=== PATIENT | female | born 1955 | race Caucasian/White ===

== ENCOUNTER 2019-08-16 15:28 | Outpatient (CLI) | payer BC, MEDICARE, SELFPAY ==
--- NOTE | 2019-08-16 15:39 | XR_ITS ---
WS: [id number] DEXA (DUAL ENERGY X-RAY ABSORPTIOMETRY) Bone mineral density was performed using a Kudan machine. HISTORY: OSTEOPENIA, ASYMPTOMATIC POST MENOPAUSAL STATUS COMPARISON: None available. Lumbar spine BMD (L1-L4): 0.966 g/cm2 T score: -1.8 Z score: -1.4 Total hip BMD: Left: 0.835 g/cm2. T score: -1.4 Z score: -1.0 Right: 0.808 g/cm2. T score: -1.6 Z score: -1.2 10 year probability of a major osteoporotic fracture is 26%. XR/XR DEXA axial skeleton* [id number] IMPRESSION: OSTEOPENIA based upon the WHO classification for females. Patient at significan t risk for fracture.
== END 2019-08-16 15:29 | disposition home or self-care (01) ==
PROVIDERS: Family Provider Family Medicine; PCP Family Medicine; Visit Provider Family Medicine
DX: M85.80 Other specified disorders of bone density and structure, unspecified site (principal); Z78.0 Asymptomatic menopausal state
CPT/HCPCS: 77080

== ENCOUNTER → 2020-01-11 13:01 | Outpatient (BNVA) | payer BC, SELFPAY | PROVIDERS: Family Provider Family Medicine; PCP Family Medicine; Visit Provider Orthopaedic Surgery | DX: M17.0 Bilateral primary osteoarthritis of knee (principal) | CPT/HCPCS: 73560; 73565 ==

== ENCOUNTER 2020-07-19 12:55 | Outpatient (CLI) | payer BC, SELFPAY ==
--- NOTE | 2020-07-19 13:05 | MM_ITS ---
WS: [id number] SCREENING DIGITAL MAMMOGRAM WITH CAD HISTORY: SCREENING COMPARISON: 07/13/2019, 06/04/2018 Bilateral CC and MLO views submitted. Computer aided detection analyzed. Breast composition: The breasts are almost entirely fatty. No suspicious masses, microcalcifications or architectural distortion. Benign lymph nodes in each breast. MM/[place] [id number] IMPRESSION: BI-RADS: 2-Benign FOLLOW UP: 1 Year Follow-up
== END 2020-07-19 12:56 | disposition home or self-care (01) ==
LOC: RADSHAW 12:59
PROVIDERS: PCP Internal Medicine; Visit Provider Internal Medicine
DX: Z12.31 Encounter for screening mammogram for malignant neoplasm of breast (principal)
CPT/HCPCS: 77067

== ENCOUNTER 2021-09-19 10:08 | Outpatient (CLI) | payer BC, SELFPAY ==
--- NOTE | 2021-09-19 10:21 | MM_ITS ---
WS: [id number] BILATERAL DIGITAL SCREENING MAMMOGRAPHY WITH CAD CLINICAL INFORMATION: SCREENING HISTORY: Screening mammogram. No current complaints. COMPARISON: July 19, 2020 TECHNIQUE: Bilateral CC and MLO views. FINDINGS: Scattered fibroglandular densities bilaterally. Lucent centered calcification RIGHT breast. Stable in tramammary lymph node upper outer LEFT breast. No suspicious focal mass, asymmetry, calcifications, o r architectural distortion. No evidence of malignancy. MM/[place] [id number] IMPRESSION: BI-RADS: 2-Benign FOLLOW UP: 1 Year Follow-up Recommend return to annual screening mammography.
== END 2021-09-19 10:09 | disposition home or self-care (01) ==
PROVIDERS: PCP Internal Medicine; Visit Provider Internal Medicine
DX: Z12.31 Encounter for screening mammogram for malignant neoplasm of breast (principal)
CPT/HCPCS: 77067

== ENCOUNTER 2022-09-23 11:41 | Outpatient (CLI) | payer BC, SELFPAY ==
--- NOTE | 2022-09-23 11:59 | MM_ITS ---
WS: [id number] BILATERAL SCREENING DIGITAL TOMOSYNTHESIS MAMMOGRAM WITH CAD HISTORY: SCREENING COMPARISON: 09/19/2021, 07/19/2020 and 05/14/2017 Bilateral CC and MLO views with tomosynthesis and synthetic mammography submitted. Computer aided det ection analyzed. Breast composition: There are scattered areas of fibroglandular density. No suspicious masses, microc alcifications or architectural distortion. Tubular asymmetry in the central anterior LEFT breast is s table over multiple prior years. Benign calcification RIGHT breast. MM/[place] [id number] IMPRESSION: BI-RADS: 2-Benign FOLLOW UP: 1 Year Follow-up
== END 2022-09-23 11:42 | disposition home or self-care (01) ==
PROVIDERS: PCP Internal Medicine; Visit Provider Internal Medicine
DX: Z12.31 Encounter for screening mammogram for malignant neoplasm of breast (principal)
CPT/HCPCS: 77063; 77067

== ENCOUNTER → 2022-12-18 13:48 | Outpatient (BNVA) | payer BC, SELFPAY | PROVIDERS: PCP Internal Medicine; Visit Provider Nurse Practitioner Family | DX: M17.0 Bilateral primary osteoarthritis of knee (principal); Z71.89 Other specified counseling; E66.9 Obesity, unspecified; Z68.41 Body mass index [BMI] 40.0-44.9, adult | CPT/HCPCS: 73560; 73565 ==

== ENCOUNTER 2022-12-19 16:38 | Emergency (ER) | payer BC, SELFPAY ==
[2022-12-19 16:55] VITALS: BP 175/91; PULSE 78; RESP 17; TEMP 36.6; O2SAT 93
--- NOTE | 2022-12-19 17:11 | XRR_ITS ---
PROCEDURE INFORMATION: Exam: XR Left Knee Exam date and time: 12/19/2022 4:28 PM Age: 67 years old Clinical indication: Pain; Knee; Left; Prior surgery; Surgery date: 6+ months; Surgery type: Scope; Additional info: Fall and knee pain TECHNIQUE: Imaging protocol: Radiologic exam of the left knee. Views: 3 views. COMPARISON: No relevant prior studies available. FINDINGS: Bones/joints: Severe tricompartmental osteoarthritis of the knee. Chronic proximal fibular diaphyseal healed fracture. Soft tissues: Normal. XR/XR knee LT 3V* [id number] IMPRESSION: 1. Negative for acute fracture or dislocation. 2. Severe tricompartmental osteoarthritis of the knee. 3. Chronic proximal fibular diaphyseal healed fracture.
--- NOTE | 2022-12-19 17:11 | XRR_ITS ---
PROCEDURE INFORMATION: Exam: XR Right Knee Exam date and time: 12/19/2022 4:33 PM Age: 67 years old Clinical indication: Pain; Knee; Right; Additional info: Fall and knee pain TECHNIQUE: Imaging protocol: Radiologic exam of the right knee. Views: 3 views. COMPARISON: No relevant prior studies available. FINDINGS: Bones/joints: Moderate to severe tricompartmental osteoarthritis of the knee, greatest medially. Soft tissues: Normal. XR/XR knee RT 3V* [id number] IMPRESSION: Moderate to severe tricompartmental osteoarthritis of the knee, greatest medially.
--- NOTE | 2022-12-19 17:11 | XRR_ITS ---
PROCEDURE INFORMATION: Exam: XR Left Hip Exam date and time: 12/19/2022 4:24 PM Age: 67 years old Clinical indication: Hip pain; Left hip; Additional info: Fall and hip pain TECHNIQUE: Imaging protocol: Radiologic exam of the left hip. Views: 2 or 3 views hip with pelvis when performed. COMPARISON: No relevant prior studies available. FINDINGS: Bones/joints: Unremarkable. No acute fracture. Soft tissues: Unremarkable. XR/XR hip LT 2-3V wo/w pel* [id number] IMPRESSION: No acute findings. If concern for fracture remains clinically consider further evaluation with a CT scan given overlapping soft tissue density somewhat limiting evaluation.
--- NOTE | 2022-12-19 18:20 | CTR_ITS ---
PROCEDURE INFORMATION: Exam: CT Left Lower Extremity Without Contrast, Hip Exam date and time: 12/19/2022 6:57 PM Age: 67 years old Clinical indication: Pain; Hip; Left; Additional info: Hip pain and difficulty bearing weight after fall TECHNIQUE: Imaging protocol: CT of the left lower extremity without contrast was performed. Exam focused on the hip. Radiation optimization: All CT scans at this facility use at least one of these dose optimization techniques: automated exposure control; mA and/or kV adjustment per patient size (includes targeted exams where dose is matched to clinical indication); or iterative reconstruction. REPORTING DATA: Count of CT and Cardiac NM exams in prior 12 months: This patient has received 0 known CTs and 0 known cardiac nuclear medicine studies in the 12 months prior to the current study. COMPARISON: CR (PELVIS, ) 12/19/2022 4:24 PM RADIATION DOSE METRICS: Total DLP (mGy-cm): 847 FINDINGS: Bones/joints: Normal. No acute fracture or dislocation. Soft tissues: Normal. Bowel: Diverticulosis of the distal colon. Reproductive: The uterus and ovaries are absent. CT/CT hip LT wo con* [id number] IMPRESSION: No acute findings.
[2022-12-19 18:28] VITALS: RESP 18
[2022-12-19] MEDS: morphine 4 mg/mL SDV 1 mL IM (18:28)
[2022-12-19] MEDS: ondansetron 4 MG Tablet PO ×2 (18:29→20:11)
--- NOTE | 2022-12-19 19:22 | ED_ITS ---
HPI - Fall General: Chief Complaint: Fall Stated Complaint: left leg pain Time Seen by Provider: 12/19/22 17:02 History of Present Illness: Patient is in today after a fall. She reports that she tripped over a curb and fell onto both of her knees and her hands (all fours) and then she fell over onto her left hip on the pavement. She denies hitting her head. She denies loss of consciousness. She denies that she is on any blood thinning medications. She reports difficulty with bearing weight on her left leg. She does have some pain in her knees and also feels like she skinned up her elbows. She reports that she has ongoing knee issues and she just received steroid injections in both knees yesterday Associated symptoms-after fall: Denies abdominal pain, chest pain, headache(s) or lightheadedness Review of Systems Const: Denies: fever(s), chills or body aches Card: Denies: chest pain, palpitations, irregular heart rhythm, ligh theadedness or syncope Resp: Denies: dyspnea, productive cough or non-productive cough GI: Denies: abdominal pain, nausea or vomiting Musc: Reports: extremity pain and limited range of motion Neuro: Denies: headache(s), numbness in extremities or weakness in extremities PFSH ED PFSH: Social History Smoking and tobacco status: former smoker Alcohol intake: never Substance/Drug Use: never Physical Exam Const: COMMON NORMALS: no acute distress, patient oriented x3 and alert GENERAL APPEARANCE: cooperative ORIENTATION/CONSCIOUSNESS: Yes awake, Yes oriented to person, Yes oriented to place and Yes oriented to time Neck/C-Spine: COMMON NORMALS: full ROM Resp: COMMON NORMALS: normal respiratory effort, No retractions, No use of accessory muscles and clear to auscultation bilaterally EFFORT & INSPECTION: Yes symmetric chest movement AUSCULTATION: clear to auscultation bilaterally Cardio: COMMON NORMALS: regular rate, regular rhythm, S1 normal heart sound present and S2 normal heart sound present RATE: regular rate RHYTHM: regular rhythm HEART SOUNDS: S1 normal heart sound present and S2 normal heart sound present GI: COMMON NORMALS: Normal to inspection, nondistended, normoactive bowel sounds present, Soft to palpation, non-tender, No hepatosplenomegaly present, no masses and no bruits INSPECTION: Yes normal to inspection PALPATION: Yes Soft to palpation and Yes No hepatosplenomegaly present : COMMON NORMALS: Yes no CVA tenderness BLADDER/KIDNEY EXAM: Yes no CVA tenderness Back/Pelvis: COMMON NORMALS: no CVA tenderness Extremity: NARRATIVE EXTREMITY EXAM: Patient has tenderness to palpation left posterior hip. Patient is not bearing weight on the left leg. Pedal pulses intact bilateral feet. Patient has some tenderness to palpation bilateral anterior knees however she is able to bend and extend at the knees. Patient has superficial abrasions bilateral elbows but has full range of motion of the arms. Neuro: COMMON NORMALS: patient oriented x3 SENSORIUM/ORIENTATION: Yes alert, Yes oriented to person, Yes oriented to place and Yes oriented to time Psych: COMMON NORMALS: cooperative Course ED course: Patient had an episode of central chest pain that radiated to her back while waiting for her CT to results. She reported that she was a little bit short of breath for a minute but felt like it was because it hurts to breathe not necessarily that she could not breathe. She did not have any diaphoresis. She does not have any heart history per her. She states that she thinks it is just muscle spasming from her fall. Pain resolved within 5 to 10 minutes. EKG did not show any acute ST elevation. Patient does not wish to have further cardiac work-up at this time because she states she knows it is from the fall and just muscle spasming. Patient wishes to be discharged to home at this time and states that she will return for any additional chest pain. Vital Signs: Vital signs: Vital Signs Temperature 97.9 F 12/19/22 16:55 Pulse Rate 78 12/19/22 16:55 Respiratory Rate 18 12/19/22 18:28 Blood Pressure 175/91 12/19/22 16:55 Pulse Oximetry 93 12/19/22 16:55 Oxygen Delivery Me thod Room Air 12/19/22 16:55 MDM - Fall Medical Decision Making Consider fracture hip versus contusion x-ray hip view was limited due to overlying soft tissue/body habitus. Given the fact that the patient is having difficulty bearing weight on the leg at all CT scan without contrast is done. CT scan shows no acute findings. X-ray knees show chronic tricompartmental osteoarthritis in the left knee has a noted chronic healed fibular fracture. Patient is given 1 dose of pain medication in the ER today. We will discharge patient home with hydrocodone 5 mg 325 mg 1 p.o. every 4-6 hours as needed pain #[address] Miner. Follow-up with primary care provider. Return to the ER as needed for any new or worsening symptoms or return of chest pain. Lab Data Radiology Impressions Hip/Pelvis X-Ray 12/19/22 17:11 IMPRESSION: No acute findings. If concern for fracture remains clinically consider further evaluation with a CT scan given overlapping soft tissue density somewhat limiting evaluation. Knee X-Ray 12/19/22 17:11 IMPRESSION: Moderate to severe tricompartmental osteoarthritis of the knee, greatest medially. Hip CT 12/19/22 18:20 IMPRESSION: No acute findings. Discharge Plan Discharge Patient Disposition: Home Clinical Impression: Contusion of left hip and thigh, Osteoarthritis of knees, bilateral, Contusion of left knee, Contusion of knee, right Condition: Stable Prescriptions: No Action betamethasone acet,sod phos [Celestone Soluspan] 6 mg/mL suspension 6 mg INTRA-BARBARA ONCE Qty: 1 0RF bupivacaine (PF) 0.5 % (5 mg/mL) solution 5 mg INTRA-BARBARA ONCE Qty: 2 0RF lidocaine (PF) 10 mg/mL (1 %) solution 10 mg INTRA-BARBARA ONCE Qty: 2 0RF omeprazole 20 mg capsule,delayed release(DR/EC) 20 mg PO DAILY fluticasone propion-salmeterol [Advair Diskus] 250-50 mcg/dose blister with device 1 inh INHALATION BID Premarin 0.625 mg tablet 0.625 mg PO DAILY betamethasone acet,sod phos [Celestone Soluspan] 6 mg/mL suspension 6 mg intra-articular ONCE Qty: 1 0RF bupivacaine (PF) 0.5 % (5 mg/mL) solution 5 mg intra-articular ONCE Qty: 2 0RF lidocaine (PF) 10 mg/mL (1 %) solution 10 mg intra-articular ONCE Qty: 2 0RF betamethasone acet,sod phos [Celestone Soluspan] 6 mg/mL suspension 6 mg INTRA-BARBARA ONCE Qty: 1 0RF bupivacaine (PF) 0.5 % (5 mg/mL) solution 10 mg INTRA-BARBARA ONCE Qty: 2 0RF lidocaine (PF) 10 mg/mL (1 %) solution 20 mg INTRA-BARBARA ONCE Qty: 2 0RF levothyroxine 25 mcg capsule 50 mcg PO DAILY cyclobenzaprine 5 mg tablet 5 mg PO TID PRN Discharge Orders: Discharge ED (Routine); Ordered 12/19/22 Ordered By: Camilla Caballero Referrals: Afsaneh Vargas MD [Primary Care Provider] - Discharge Diet: Usual diet Discharge Activity: Increase activity as tolerated Patient Instructions: Opioid Safety Activity Restrictions/Additional Instructions: Ice, rest the extremity. Take pain medication as needed/as directed. Do not drive after taking pain medication. Follow-up with primary care provider. Return to the ER for any new or worsening symptoms Coding Level of Care Code ED Paving Machine Operator for Larissa Schaffer
--- NOTE | 2022-12-19 19:30 | PC.NURSE ---
Patient family reported patient was experiencing chest pain. Upon assessment, patient reported the chest pain was in substernal and radiated to the back. EKG was performed. Physician notified.
[2022-12-19] MEDS: HYDROcodone-acetaminophen 5-325 mg Tablet 2 TAB PO (20:11)
--- NOTE | 2022-12-19 20:15 | PC.NURSE ---
Pt was discharged with 1 hydrocodone tablet and 1 zofran tablet per Camilla Caballero, SUPERVISOR [employer]G LICENSE OFFICER.
== END 2022-12-19 20:17 | disposition home or self-care (01) ==
PROVIDERS: Emergency Provider Nurse Practitioner Family; PCP Internal Medicine
DX: S70.02XA Contusion of left hip, initial encounter (principal); S70.12XA Contusion of left thigh, initial encounter; S80.02XA Contusion of left knee, initial encounter; S80.01XA Contusion of right knee, initial encounter; M17.0 Bilateral primary osteoarthritis of knee; Z87.891 Personal history of nicotine dependence; W18.09XA Striking against other object with subsequent fall, initial encounter
CPT/HCPCS: 73502; 73562; 73700; 96372; 99284; J2270; Q0162

== ENCOUNTER 2023-09-26 10:56 | Outpatient (CLI) | payer BC, SELFPAY ==
--- NOTE | 2023-09-26 11:00 | MM_ITS ---
WS: [id number] SCREENING DIGITAL TOMOSYNTHESIS MAMMOGRAM WITH CAD HISTORY: SCREENING COMPARISON: 09/23/2022, 09/19/2021 Bilateral CC and MLO with tomosynthesis views submitted. Synthetic mammography reviewed. Computer aid ed detection analyzed. Breast composition: The breasts are almost entirely fatty. No suspicious masses, microcalcifications or architectural distortion. Asymmetries are stable. No suspicious mass. Benign calcification RIGHT b reast. IMPRESSION: MM/[place] [id number] BI-RADS: 2-Benign FOLLOW UP: 1 Year Follow-up
== END 2023-09-26 10:57 | disposition home or self-care (01) ==
LOC: RAD 10:58
PROVIDERS: PCP Internal Medicine; Visit Provider Internal Medicine
DX: Z12.31 Encounter for screening mammogram for malignant neoplasm of breast (principal)
CPT/HCPCS: 77063; 77067

== ENCOUNTER → 2024-01-31 18:44 | Outpatient (BNVA) | payer MEDICARE, SELFPAY | PROVIDERS: PCP Internal Medicine; Visit Provider Emergency Medicine | DX: R39.9 Unspecified symptoms and signs involving the genitourinary system (principal) | CPT/HCPCS: 81000 ==

== ENCOUNTER 2024-02-11 09:08 | Day surgery (SDC) | payer BC, SELFPAY ==
[2024-02-11] VITALS (7 sets, daily range): BP systolic 107–159; BP diastolic 46–116; PULSE 73–94; RESP 16–26; TEMP 36.4; O2SAT 95–98; BMI 43.8
[2024-02-11] MEDS: sodium chloride 0.9% 1,000 ML 30 ML IV (09:32)
--- NOTE | 2024-02-11 09:33 | P.ANESASSM_ITS ---
Pre-Anesthetic Assessment Height/Weight: Height 1.55 m Weight 105.233 kg Temp Pulse Resp BP Pulse Ox O2 Del Method 97.5 F L 94 18 159/116 96 Room Air 02/11/24 09:25 02/11/24 09:25 02/11/24 09:25 02/11/24 09:25 02/11/24 09:25 02/11/24 09:25 Operation Date: 02/11/24 10:15 Proposed Procedures p EGD 05449, 88917, G0105, R19.5, K21.9, Z86.010(Not Applicable) - Janes Zuluaga DO s Colonoscopy(Not Applicable) - Janes Zuluaga DO Familial anesthetic complications: PONV Was Beta Cristina taken within 24 hours: N/A Was Clonidine taken within 24 hours: N/A Last intake: Intake Last Liquid Date 02/10/24 Last Liquid Time 23:00 Last Solid Date 02/09/24 Last Solid Time 16:00 Social No alcohol and No tobacco Exam alert, oriented x 3, clear to auscultation bilaterally and regular rate & rhythm Airway Submandibular: within normal limits Cervical ROM: within normal limits Mallampati: Class III Dentition: full History/ROS No significant history except as noted and No significant complaints Pulmonary Asthma, Exertional Dyspnea and Sleep Apnea Restrictive air disease CV/HEM Palpitations Kidney infection, just finished antibiotics yesterday Hepatic None reported GI Gastroesophageal Reflux Disease Metabolic Morbid Obesity and Thyroid Disease Musc/skel Osteoarthritis/DJD Neuropsych Anxiety Anesthetic Plan ASA status: 3 Anesthesia: Anesthesia Evaluation, General and MAC Risk of > 500 ml blood loss (7ml/kg in children): No Medications/Allergies Home Medications Medication Instructions Recorded Confirmed Last Taken Type conjugated estrogens 0.625 mg 0.625 mg PO DAILY 10/07/19 02/11/24 02/09/24 History tablet (Premarin) fluticasone 250 mcg-salmeterol 50 1 inh inhalation DAILY 10/07/19 02/09/24 02/08/24 History mcg/dose blistr powdr for inhalation (Advair Diskus) levothyroxine 25 mcg capsule 75 mcg PO DAILY 07/03/23 02/11/24 02/10/24 History acetaminophen 325 mg capsule 325 mg PO QID PRN pain or fever 01/08/24 02/11/24 Unknown History (Tylenol) ergocalciferol (vitamin D2) 1,250 50,000 unit PO .WEEKLY 01/08/24 02/11/24 02/07/24 History mcg (50,000 unit) capsule pantoprazole 40 mg tablet,delayed 40 mg PO BID 6 weeks #84 tabs 01/08/24 02/11/24 02/10/24 Rx release (Protonix) phenazopyridine 200 mg tablet 200 mg PO Q8H PRN pain 9 doses #9 01/31/24 02/11/24 02/07/24 Rx (Pyridium) tabs sulfamethoxazole 800 1 tab PO Q12H 10 days #20 tabs 01/31/24 02/11/24 02/10/24 R x mg-trimethoprim 160 mg tablet (Bactrim DS) Allergies Allergy/AdvReac Type Severity Reaction Status Date / Time cefixime [From Suprax] Allergy vomiting Verified 02/09/24 09:24 cefuroxime [From Ceftin] Allergy Unknown Verified 02/09/24 09:24 erythromycin base Allergy Unknown Verified 02/09/24 09:24 Current Medications Generic Name Dose Route Start Last Admin Trade Name Freq PRN Reason Stop Dose Admin Sodium Chloride 1,000 mls @ 30 mls/hr 02/11/24 09:30 02/11/24 09:32 Sodium Chloride 0.9% IV 02/12/24 09:29 30 mls/hr .Q24H LEIA Administration PFSH Anesthesia Medical History History of colon polyps Social History Smoking and tobacco/nicotine status: former use of tobacco/nicotine Alcohol intake: never Substance/Drug Use: never Data Anesthesia Cardiac Studies: No Data to Display
--- NOTE | 2024-02-11 10:17 | PM.HP ---
Providers/Chief Complaint Primary Care Provider: Afsaneh Vargas MD Chief Complaint: R19.5, K21.9, Z86.010 History of Present Illness Regla Ozuna is a 68 year old female Review of Systems General: Reports: 10 or more systems reviewed and unremarkable except in HPI and below Medications/Allergies Home Medications Medication Instructions Recorded Confirmed Last Taken Type conjugated estrogens 0.625 mg 0.625 mg PO DAILY 10/07/19 02/11/24 02/09/24 History tablet (Premarin) fluticasone 250 mcg-salmeterol 50 1 inh inhalation DAILY 10/07/19 02/09/24 02/08/24 History mcg/dose blistr powdr for inhalation (Advair Diskus) levothyroxine 25 mcg capsule 75 mcg PO DAILY 07/03/23 02/11/24 02/10/24 History acetaminophen 325 mg capsule 325 mg PO QID PRN pain or fever 01/08/24 02/11/24 Unknown History (Tylenol) ergocalciferol (vitamin D2) 1,250 50,000 unit PO .WEEKLY 01/08/24 02/11/24 02/07/24 History mcg (50,000 unit) capsule pantoprazole 40 mg tablet,delayed 40 mg PO BID 6 weeks #84 tabs 01/08/24 02/11/24 02/10/24 Rx release (Protonix) phenazopyridine 200 mg tablet 200 mg PO Q8H PRN pain 9 doses #9 01/31/24 02/11/24 02/07/24 Rx (Pyridium) tabs sulfamethoxazole 800 1 tab PO Q12H 10 days #20 tabs 01/31/24 02/11/24 02/10/24 Rx mg-trimethoprim 160 mg tablet (Bactrim DS) Allergies Allergy/AdvReac Type Severity Reaction Status Date / Time cefixime [From Suprax] Allergy vomiting Verified 02/09/24 09:24 cefuroxime [From Ceftin] Allergy Unknown Verified 02/09/24 09:24 erythromycin base Allergy Unknown Verified 02/09/24 09:24 PFSH Acute PFSH: Medical History History of colon polyps Social History Smoking and tobacco/nicotine status: former use of tobacco/nicotine Alcohol intake: never Substance/Drug Use: never Vitals/I&O/Wt Last Vital Signs Temp 97.5 F L 02/11/24 09:25 Pulse 94 02/11/24 09:25 Resp 18 02/11/24 09:25 BP 159/116 02/11/24 09:25 Pulse Ox 96 02/11/24 09:25 O2 Del Method Room Air 02/11/24 09:25 Weight last 48 hrs Weight 232 lb A&P Assessment and plan (1) Positive colorectal cancer screening using Cologuard test: (2) GERD (gastroesophageal reflux disease): (3) History of colon polyps: Plan EGD and colonoscopy Attestations Medical Necessity Statement*: Home Coding Level of Care Code Acute Code for Chg Fwd Diagnoses Positive colorectal cancer screening using Cologuard test R19.5 GERD (gastroesophageal reflux disease) K21.9 History of colon polyps Z86.010
[2024-02-11] MEDS: EPINEPHrine 1 mg/mL INJ XX (10:37)
[2024-02-11] MEDS: albuterol 2.5 mg/3 mL Neb INHALATION (11:35)
--- NOTE | 2024-02-11 12:10 | ANE.PACU2 ---
Inpatient post-anesthesia follow up: Airway intact: Yes Vital signs: Temperature 97.5 F Pulse Rate 74 Respiratory Rate 16 Blood Pressure 141/58 Pulse Oximetry 98 Oxygen Delivery Me thod Room Air Oxygen Flow Rate Fraction of Inspir ed Oxygen Hydration adequate: Yes Nausea and vomiting: No Pain level: 1 Mental status: Baseline
== END 2024-02-11 12:10 | disposition home or self-care (01) ==
PROVIDERS: PCP Internal Medicine; Visit Provider Surgery
PROC: 0DJ08ZZ Inspection of Upper Intestinal Tract, Via Natural or Artificial Opening Endoscopic (ICD-10-PCS; CPT 43235; principal; 2024-02-11 10:15)
PROC: 0DJD8ZZ Inspection of Lower Intestinal Tract, Via Natural or Artificial Opening Endoscopic (ICD-10-PCS; CPT 45378; 2024-02-11 10:15)
DX: Z12.11 Encounter for screening for malignant neoplasm of colon (principal); Z86.010 Personal history of colon polyps; K20.90 Esophagitis, unspecified without bleeding; K44.9 Diaphragmatic hernia without obstruction or gangrene; K31.7 Polyp of stomach and duodenum; K57.30 Diverticulosis of large intestine without perforation or abscess without bleeding; K64.8 Other hemorrhoids; K21.9 Gastro-esophageal reflux disease without esophagitis; Z87.891 Personal history of nicotine dependence; G47.30 Sleep apnea, unspecified; E66.01 Morbid (severe) obesity due to excess calories; Z68.41 Body mass index [BMI] 40.0-44.9, adult; M19.90 Unspecified osteoarthritis, unspecified site
CPT/HCPCS: 43239; 43251; 45378; 88305; 94640; J0171; J2704; J7030; J7613

== ENCOUNTER 2024-02-16 15:40 | Outpatient (CLI) | payer BC, SELFPAY ==
--- NOTE | 2024-02-16 15:50 | XRR_ITS ---
PROCEDURE INFORMATION: Exam: XR Chest Exam date and time: 02/16/2024 3:58 PM Age: 68 years old Clinical indication: Cough and shortness of breath; Patient HX: Difficulty breathing and coughing x 5 days, frequent asthma attacks TECHNIQUE: Imaging protocol: Radiologic exam of the chest. Views: 2 views. COMPARISON: No relevant prior studies available. FINDINGS: Lungs: No focal consolidation. Pleural spaces: No evidence of pneumothorax. No evidence of pleural effusion. Heart/Mediastinum: Cardiomediastinal silhouette is within normal limits. Bones/joints: No evidence of acute osseous abnormality. Old left-sided rib fractures. XR/XR chest 2V* [id number] IMPRESSION: 1. No acute cardiopulmonary abnormality.
== END 2024-02-16 15:41 | disposition home or self-care (01) ==
LOC: RAD 15:43
PROVIDERS: PCP Internal Medicine; Visit Provider Nurse Practitioner Family
DX: R05.8 Other specified cough (principal)
CPT/HCPCS: 71046

== ENCOUNTER → 2024-06-26 16:20 | Outpatient (BNVA) | payer BC, SELFPAY | PROVIDERS: PCP Internal Medicine; Visit Provider Nurse Practitioner | DX: R39.9 Unspecified symptoms and signs involving the genitourinary system (principal) | CPT/HCPCS: 81000 ==

== ENCOUNTER 2024-09-27 15:14 | Outpatient (CLI) | payer BC, SELFPAY ==
--- NOTE | 2024-09-27 15:15 | MM_ITS ---
WS: [id number] BILATERAL 3D TOMOSYNTHESIS DIGITAL SCREENING MAMMOGRAPHY WITH CAD CLINICAL INFORMATION: SCREENING HISTORY: Screening mammogram. No current complaints. COMPARISON: 2023 TECHNIQUE: Bilateral CC and MLO views. FINDINGS: Scattered fibroglandular densities bilaterally. No suspicious focal mass, asymmetry, calcifications, or architectural distortion. No evidence of malignancy. Lucent centered calcification RIGHT breast. MM/MM scr BI tomosynthesis [id number] IMPRESSION: DENSITY: There are scattered areas of fibroglandular density. BI-RADS: 2 - Benign. FOLLOW UP: 1 Year Follow-up Recommend return to annual screening mammography.
== END 2024-09-27 15:15 | disposition home or self-care (01) ==
PROVIDERS: PCP Internal Medicine; Visit Provider Internal Medicine
DX: Z12.31 Encounter for screening mammogram for malignant neoplasm of breast (principal); R92.323 Mammographic fibroglandular density, bilateral breasts; R92.1 Mammographic calcification found on diagnostic imaging of breast
CPT/HCPCS: 77063; 77067

== ENCOUNTER → 2024-12-15 07:59 | Outpatient (BNVA) | payer BC, SELFPAY | PROVIDERS: PCP Internal Medicine; Visit Provider Family Medicine Adult Medicine | DX: R30.0 Dysuria (principal) | CPT/HCPCS: 81000 ==